=== PATIENT | male | born 1995 | race Caucasian/White ===

== ENCOUNTER 2024-03-12 09:54 | Emergency (ER) | payer SELFPAY ==
[2024-03-12] MEDS ORDERED: Orphenadrine Citrate 60 MG/2 ML VIAL ONE (10:55)
[2024-03-12] MEDS ORDERED: Dexamethasone 10 MG/ML VIAL ONE (10:55)
[2024-03-12] MEDS ORDERED: Acetaminophen 500 MG TAB ONE (10:55)
[2024-03-12] MEDS ORDERED: Lidocaine 4% Patch ONE (10:56)
[2024-03-12] MEDS ORDERED: Morphine 10 MG/ML VIAL ONE (10:56)
== END 2024-03-12 11:33 | disposition home or self-care (01) ==
LOC: MADERS 09:54
DX: M54.40 Lumbago with sciatica, unspecified side (principal)
CPT/HCPCS: 96372; 96374; J1100; J2270; J2360